=== PATIENT | male | born 1950 | race Caucasian/White ===

== ENCOUNTER 2025-07-08 18:25 | Emergency (ER) | payer MEDICARE, BC ==
[~2025-07-08] VITALS: Ht 172.7 cm; Wt 80.0 kg
[2025-07-08 18:56] VITALS: BP 152/110; PULSE 105; RESP 18; O2SAT 99
--- NOTE | 2025-07-08 19:04 | Physician Documentation ---
History of Present Illness ~ Chief Complaint: Bite-animal Stated Complaint: DOG BITE/ R FOREARM Time Seen by MD: 19:22 HPI Patient is a pleasant 74-year-old male that reports to the emergency department for evaluation of a bite that he sustained from a dog earlier today. Medication Reconciliation Allergies: Coded Allergies: No Known Allergies (Unverified , 07/08/25) Review of Systems ROS As stated above in the HPI, otherwise all systems are reviewed and negative. Physical Exam Vital Signs: Temperature: 97.0, Heart Rate: 105, Respiratory Rate: 18, BP: 152/110, Pulse Oximetry: 99, Weight: 80.000 Physical Exam VITALS: Reviewed and as above. GENERAL: Alert, no apparent distress. HEENT: Normocephalic, atraumatic, PERRL, EOMI, dry mucosa, no erythema RESPIRATORY: Lungs clear, normal breath sounds, no respiratory distress. CHEST: No accessory muscle use, no retractions CV: Regular rate, rhythm, no edema, no murmur, No: JVD GI: Soft, non-tender, bowels sounds present, no rebound, guarding, or rigidity BACK: No CVA tenderness, or swelling MUSCULOSKELETAL No deformities, no edema SKIN: Warm and dry, laceration and puncture cabral noted to the lateral aspect of the right forearm, bleeding is currently controlled. NEURO: Oriented x4, No motor or sensory deficit PSYCH: Normal mood and affect, no agitation Progress Results/Orders Results/Orders Orders - ORQUIDEA ROBERTS CHEMICAL ENGINEERING PROFESSOR Forearm,Incl.One Joint (07/08/25 19:50) Completed Orders - ORQUIDEA ROBERTS CHEMICAL ENGINEERING PROFESSOR Forearm,Incl.One Joint (07/08/25 19:50) Amox Tr/Potassium Clavulanate (Augmentin (07/08/25 21:30) Vital Signs 07/08/25 18:56 Temp 97.0 Pulse 105 Resp 18 B/P (MAP) 152/110 Pulse Ox 99 Medical Decision Making Additional information obtaine: other Findings Patient presented to the emergency department for evaluation of a dog bite sustained earlier today. Patient reports that they did not know the dog the dog belonged to a family in the park the dog did not have any indication of being infectious or appear rabid. Explained to great length the patient has option to undergo the rabies series provided the patient with information if he chooses to do so. Wound inspected under direct bright light with good visualization. Area with linear laceration across soft tissue through adipose without exposure of muscle belly or tendon. No overt foreign body. Area hemostatic. Neurovascular exam congruent with above. Area extensively irrigated with sterile normal saline under pressure. Laceration repaired in simple fashion as below (please see procedure note for further details). Laceration repaired with a loose closure using only 1 stitch to reapproximate tissue into encourage free epithelializing of the tissue for healing. Patient tolerated procedure well and neurovascular exam intact and unchanged post repair with intact distal pulses and cap refill. Cautious return precautions discussed w/ full understanding. Wound care discussed. Prompt follow up with primary care physician discussed and return for suture removal in 8-10 days. Patient has been prescribed a course of Augmentin. Presents of Augmentin was given here in the emergency department. Patient will follow up with his primary care provider. Patient will return to the emergency department with any worsening of his current symptoms or any additional concerning symptoms that we discussed here today i.e. infectious looking drainage increased swelling increased redness fever chills nausea vomiting or any other concerning symptoms that we discussed here today. Differential Dx:Considerations: Include: Abrasion, Allergic reaction, Anaphylaxis, Cellulitis, Contusion, Fracture, Hematoma, Insect envenomation, Laceration, Neurovascular injury, Punture wound, Retained foreign body, Urticaria, Other Departure Disposition: 01 HOME / SELF CARE / HOMELESS Impression: Primary Impression: Dog bite Condition: Stable Additional Instructions: Patient presented to the emergency department for evaluation of a dog bite sustained earlier today. Patient reports that they did not know the dog the dog belonged to a family in the park the dog did not have any indication of being infectious or appear rabid. Explained to great length the patient has option to undergo the rabies series provided the patient with information if he chooses to do so. Wound inspected under direct bright light with good visualization. Area with linear laceration across soft tissue through adipose without exposure of muscle belly or tendon. No overt foreign body. Area hemostatic. Neurovascular exam congruent with above. Area extensively irrigated with sterile normal saline under pressure. Laceration repaired in simple fashion as below (please see procedure note for further details). Laceration repaired with a loose closure using only 1 stitch to reapproximate tissue into encourage free epithelializing of the tissue for healing. Patient tolerated procedure well and neurovascular exam intact and unchanged post repair with intact distal pulses and cap refill. Cautious return precautions discussed w/ full understanding. Wound care discussed. Prompt follow up with primary care physician discussed and return for suture removal in 8-10 days. Patient has been prescribed a course of Augmentin. Presents of Augmentin was given here in the emergency department. Patient will follow up with his primary care provider. Patient will return to the emergency department with any worsening of his current symptoms or any additional concerning symptoms that we discussed here today i.e. infectious looking drainage increased swelling increased redness fever chills nausea vomiting or any other concerning symptoms that we discussed here today. Referrals: NO PRIMARY CARE PROVIDER (PCP) Prescriptions Amox Tr/Potassium Clavulanate (Augmentin 875-125 Tablet) 1 Each Tablet 1 TAB PO Q12H for 10 Days, #20 TAB Prov: ORQUIDEA ROBERTS 07/08/25 Education Educated: Patient Educated regarding: diagnosis, treatment, need for follow up Signature Scribe Signature: A Attestation: Scribed for Orquidea Roberts by ORLANDO Ford . 07/08/25 21:43 ORQUIDEA ROBERTS Jul 08, 2025 19:04
--- NOTE | 2025-07-08 20:37 | RADIOLOGY REPORT ---
CLINICAL INDICATION: Dog bite TECHNIQUE: 2 radiographic views of the right forearm were obtained. Comparison: None FINDINGS/IMPRESSION: There is no evidence of acute fracture or dislocation. The visualized joint space is well maintained. The alignment is anatomical. There is no radiopaque foreign body.
[2025-07-08] MEDS: amox tr/potassium clavulanate 875/125mg TAB PO ONE (21:42)
[2025-07-08] MEDS ORDERED: AMOX-117 PO (21:42)
[2025-07-08 21:46] VITALS: TEMP 97
== END 2025-07-08 21:50 | disposition home or self-care (01) ==
LOC: ER 18:27
DX: S51.811A Laceration without foreign body of right forearm, initial encounter (principal); W54.0XXA Bitten by dog, initial encounter; Y93.89 Activity, other specified; Y92.89 Other specified places as the place of occurrence of the external cause; Y99.8 Other external cause status
CPT/HCPCS: 12001; 73090; 99283; A6258; Z7610